=== PATIENT | female | born 1950 | race Caucasian/White ===

== ENCOUNTER → 2021-10-29 13:21 | Outpatient (BNVA) | payer MEDICARE, OTHER, SELFPAY | PROVIDERS: PCP Internal Medicine; Referring Provider Internal Medicine; Visit Provider Specialist | DX: G20 Parkinson's disease (principal) | CPT/HCPCS: 99205 ==

== ENCOUNTER → 2022-06-09 09:33 | Outpatient (BNVA) | payer MEDICARE, OTHER, SELFPAY | PROVIDERS: PCP Internal Medicine; Visit Provider Specialist | DX: G20 Parkinson's disease (principal); G31.84 Mild cognitive impairment of uncertain or unknown etiology | CPT/HCPCS: 96116; 99215 ==

== ENCOUNTER → 2023-01-06 12:01 | Outpatient (BNVA) | payer MEDICARE, OTHER, SELFPAY | PROVIDERS: PCP Internal Medicine; Visit Provider Specialist | DX: G20 Parkinson's disease (principal); F41.9 Anxiety disorder, unspecified | CPT/HCPCS: 96116; 99215 ==